=== PATIENT | male | born 1960 | race Two or more races ===

== ENCOUNTER → 2021-01-19 | Outpatient (CLI) | payer OTHER | END | disposition home or self-care (01) | LOC: PPH VACUNA | DX: Z23 Encounter for immunization (principal) ==

== ENCOUNTER 2021-02-09 15:47 | Outpatient (CLI) | payer OTHER | END 2021-02-09 15:48 | disposition home or self-care (01) | LOC: PPH VACUNA 15:47 | DX: Z23 Encounter for immunization (principal) ==